=== PATIENT | male | born 1965 | race Asian ===

== ENCOUNTER 2016-05-23 17:06 | Emergency (ER) | payer SELFPAY ==
[~2016-05-23] VITALS: Ht 170.2 cm; Wt 95.0 kg
[2016-05-23 17:35] VITALS: BP 146/93
[2016-05-23] MEDS ORDERED: INDOMETHACIN 50MG CAPSULE PO ONE (18:00)
[2016-05-23] MEDS ORDERED: COLCHICINE 0.6MG TABLET PO SCH (18:00)
== END 2016-05-23 18:40 | disposition home or self-care (01) ==
LOC: ER 17:35
DX: M10.9 Gout, unspecified (principal); I10 Essential (primary) hypertension
CPT/HCPCS: 99283